=== PATIENT | female | born 1980 | race Caucasian/White ===

== ENCOUNTER 2018-06-03 21:02 | Emergency (ER) | payer OTHER ==
[2018-06-03 21:06] VITALS: BP 147/88; PULSE 90; TEMP 98; BMI 35.4
[2018-06-03] MEDS ORDERED: AMOX TR/POT CLAV 500MG/125MG TABLETS (FP) PO ONE (21:39)
--- NOTE | 2018-06-03 21:40 | PDOC ---
History of Present Illness - General History Source: Patient Exam Limitations: No Limitations - History of Present Illness Initial Comments: 06/03/18 21:41 The patient is a 37 year old female, who presents to the ED complaining of a dog bite on the left middle finger. 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 She denies any other kind of injuries. PAST MEDICAL HISTORY: no significant history PAST SURGICAL HISTORY: no significant history FAMILY HISTORY: no pertinent history SOCIAL HISTORY: Pt lives with family and is employed. MEDICATIONS: reviewed ALLERGIES: As per nursing notes General: No fevers or chills, no weakness, no weight loss Musculoskeletal: (+) Left middle finger bite. No joint or muscle pain or swelling Neurologic: No headache, vertigo, dizziness or loss of consciousness Psychiatric: nor depression Skin: No rashes or easy bruising Allergic: no skin or latex allergy All other systems reviewed and normal General: Well-nourished well-developed individual, no acute distress Extremities: (+) Left middle finger nearly circumferential laceration of the middle phalanges. Post numbing and Tourniquet, laceration was explored, no visible injury to the tendon, flexor or extensor. Sensation distal intact. Skin: No rashes. <Tc Warren - Last Filed: 06/03/18 22:28> - General History Source: Patient Exam Limitations: No Limitations - History of Present Illness Initial Comments: 06/03/18 22:23 A portion of this note was documented by scribe services under my direction. I have reviewed the details of the note, within reason, and agree with the documentation with the following case summary and management plan written by me. Patient treated in the ED. Nursing notes are reviewed and incorporated into the medical decision-making. Vital signs reviewed. Assessment and plan: This is a 37-year-old female who comes in complaining of dog bite to her left middle finger. Patient has a laceration that is nearly [place] comp pharyngeal of the middle. Laceration however superficial and there is no visible injury to the tendon sheath or tendon laceration was repaired and patient was started on antibiotics patient given first dose in the ED. Patient discharged home and told to return in 10 days for suture removal. 06/03/18 22:49 Procedure note: Total laceration length was approximately 3 cm Laceration was anesthetized via digital block using lidocaine no epi. Laceration was explored in a bloodless field no visible tendon injury. Laceration was irrigated with normal saline using a Zerowet and pressure. Laceration was closed with total of sutures of 5-0 Ethilon Bacitracin and sterile dressing was applied patient tolerated well. <Es Marlow I - Last Filed: 06/03/18 22:50> - General Chief Complaint: Bite Stated Complaint: DOG BITE Time Seen by Provider: 06/03/18 21:07 Past History <Tc Warren - Last Filed: 06/03/18 22:28> - Past Medical History COPD: No - Immunization History TDAP Vaccination: Yes (11/04/14) Immunization Up to Date: Yes - Suicide/Smoking/Psychosocial Hx Smoking History: Unknown if ever smoked Have you smoked in the past 12 months: No Number of Cigarettes Smoked Daily: 0 Information on smoking cessation initiated: No Hx Alcohol Use: No Drug/Substance Use Hx: No Substance Use Type: None <Es Marlow I - Last Filed: 06/03/18 22:50> - Past Medical History Allergies/Adverse Reactions: Allergies Allergy/AdvReac Type Severity Reaction Status Date / Time No Known Allergies Allergy Verified 11/14/14 08:58 Home Medications: Ambulatory Orders Amoxicillin/Potassium Clav [Augmentin 500-125 Tablet] 1 each PO TID #30 tablet 11/04/14 Amoxicillin/Potassium Clav [Augmentin 500-125 Tablet] 1 each PO BID #14 tablet 06/03/18 *Physical Exam - Vital Signs Last Vital Signs Temp Pulse Resp BP Pulse Ox 98 F 90 14 147/88 100 06/03/18 21:03 06/03/18 21:03 06/03/18 21:03 06/03/18 21:03 06/03/18 21:03 <Tc Warren - Last Filed: 06/03/18 22:28> - Vital Signs Last Vital Signs Temp Pulse Resp BP Pulse Ox 98 F 90 14 147/88 100 06/03/18 21:03 06/03/18 21:03 06/03/18 21:03 06/03/18 21:03 06/03/18 21:03 <Es Marlow I - Last Filed: 06/03/18 22:50> Moderate Sedation - Procedure Monitoring Vital Signs: Procedure Monitoring Vital Signs Temperature 98 F 06/03/18 21:03 Pulse Rate 90 06/03/18 21:03 Respiratory Rate 14 06/03/18 21:03 Blood Pressure 147/88 06/03/18 21:03 O2 Sat by Pulse Oximetry (%) 100 06/03/18 21:03 <Tc Warren - Last Filed: 06/03/18 22:28> - Procedure Monitoring Vital Signs: Procedure Monitoring Vital Signs Temperature 98 F 06/03/18 21:03 Pulse Rate 90 06/03/18 21:03 Respiratory Rate 14 06/03/18 21:03 Blood Pressure 147/88 06/03/18 21:03 O2 Sat by Pulse Oximetry (%) 100 06/03/18 21:03 <Es Marlow I - Last Filed: 06/03/18 22:50> *DC/Admit/Observation/Transfer - Attestations Scribe Attestion: 06/03/18 21:41 Documentation prepared by Tc Warren, acting as center medical and lab director for Es Marlow MD <Tc Warren - Last Filed: 06/03/18 22:28> - Discharge Dispostion Decision to Admit order: No <Es Marlow I - Last Filed: 06/03/18 22:50> Diagnosis at time of Disposition: Dog bite - Discharge Dispostion Disposition: HOME Condition at time of disposition: Good - Prescriptions Prescriptions: Amoxicillin/Potassium Clav [Augmentin 500-125 Tablet] 1 each PO BID #14 tablet - Patient Instructions Additional Instructions: To prevent infection take Augmentin 1 tablet twice a day for 7 days, Tylenol or Motrin as needed for pain. Return to the emergency department immediately with ANY new, persistent or worsening symptoms. Continue any medications as previously prescribed by your physician. You should follow up with your primary doctor as soon as possible regarding today's emergency department visit. . Please make sure your doctor reviews the results of your emergency evaluation. Thank you for coming to the Emergency Department today for your care. It was a pleasure to see you today. Please note that your evaluation is INCOMPLETE until you follow-up with your doctor.
[2018-06-03] MEDS ORDERED: AMOX TR/POT CLAV 500MG/125MG TABLETS (FP) ONE (21:44)
== END 2018-06-03 21:45 | disposition home or self-care (01) ==
LOC: FER 21:02
PROC: 0HQGXZZ Repair Left Hand Skin, External Approach (ICD-10-PCS; principal; 2018-06-03)
DX: S61.253A Open bite of left middle finger without damage to nail, initial encounter (principal); W54.0XXA Bitten by dog, initial encounter; Y93.89 Activity, other specified; Y92.89 Other specified places as the place of occurrence of the external cause; Y99.0 Civilian activity done for income or pay
CPT/HCPCS: 99282-25

== ENCOUNTER 2018-06-13 09:52 | Emergency (ER) | payer OTHER ==
--- NOTE | 2018-06-13 09:55 | PDOC ---
Suture Removal/Wound Check HPI - History of Present Illness Chief Complaint: Suture/Staple Removal(Here) Stated Complaint: SUTURE REMOVAL LEFT 3RD FINGER Time Seen by Provider: 06/13/18 09:53 History Source: Yes: Patient Exam Limitations: Yes: No Limitations Treated at: [facility] ED Date of Last ED visit: 06/03/18 - Previous ED Treatment Type of procedure performed on last visit: Yes: Laceration Repair Tetanus Immunization: Yes: Up to Date Antibiotics Prescribed: Yes (augmentin x7 days) - Onset of Previous Treatment Date of Occurence: 06/03/18 Past History - Travel Traveled outside of the country in the last 30 days: No Close contact w/someone who was outside of country & ill: No - Past Medical History Allergies/Adverse Reactions: Allergies Allergy/AdvReac Type Severity Reaction Status Date / Time No Known Allergies Allergy Verified 06/13/18 09:53 Home Medications: Ambulatory Orders Amoxicillin/Potassium Clav [Augmentin 500-125 Tablet] 1 each PO BID #14 tablet 06/03/18 Diabetes: No HTN: No Hypercholesterolemia: No - Immunization History TDAP Vaccination: Yes (11/04/14) Immunization Up to Date: Yes - Suicide/Smoking/Psychosocial Hx Smoking History: Never smoked Have you smoked in the past 12 months: No Number of Cigarettes Smoked Daily: 0 Hx Alcohol Use: No Drug/Substance Use Hx: No Substance Use Type: None Suture Removal/Wound Check PE - Physical Exam Laceration/Wound Check Symptoms: reports: Improved. denies: Pain, Fever, Chills , Redness, Discharge, Bleeding, Numbness, Weakness Comments: 10 sutures circumferential on L middle finger. Appears well-healing with scabs, no active drainage or erythema. 10 sutures removed with minimal bleeding. Bacitracin applied with clean dressing. 06/13/18 11:02 Current Severity Level: None Location of Laceration/Wound: left: Finger (L middle finger) Pain Radiation: None *Review of Systems - Review of Systems Able to Perform ROS?: Yes Constitutional: Yes: Weight Stable. No: Chills, Diaphoresis, Fever, Loss of Appetite HEENTM: No: Nose Congestion Respiratory: No: Cough Cardiac (ROS): No: Chest Pain, Chest Tightness ABD/GI: No: Diarrhea, Nausea, Poor Appetite, Poor Fluid Intake, Vomiting : No: Pain Musculoskeletal: Yes: Joint Pain (Minor joint pain over L middle finger 2/2 dog bite and suture area). No: Back Pain Integumentary: Yes: See HPI. No: Bruising, Rash Neurological: No: Headache, Numbness, Paresthesia, Tingling, Weakness Psychiatric: No: Change in Appetite Endocrine: No: Change in Weight Hematologic/Lymphatic: No: Anemia, Blood Clots, Easy Bleeding, Easy Bruising, Bleeding Diathesis Medical Decision Making - Medical Decision Making Pt was seen at bedside, also will be seen by attending Dr. Lopez. Pt presenting for suture removal placed 06/03/2018 (10 sutures on L middle finger). 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 The dog bit in response to her L finger. The pt stated the dogs get rabies checks prior to coming to the daycare, so no rabies work-up was done at that time. Pt was prescribed 7 days of augmentin, which she took to completion. There has been no loss of strength or sensation, no fever/chills, no nausea/vomiting/diarrhea, PO food and fluid intake has been sufficient, and there has been no active redness or drainage to the site. Pt thinks "1 suture may have ripped out by accident". PE showed well-healing scab circumferential around L middle finger ([address]). No active drainage or erythema. Heart and lungs sounds clear, pt appears comfortable. 10 sutures were removed (see procedure note). Bacitracin and clean bandage applied. Pt can be discharged with PCP follow-up. Strict return precautions provided. 06/13/18 09:55 *DC/Admit/Observation/Transfer Diagnosis at time of Disposition: Visit for suture removal, Dog bite - Discharge Dispostion Disposition: HOME Condition at time of disposition: Good Decision to Admit order: No - Referrals Referrals: Sandra Rai MD [Primary Care Provider] - - Patient Instructions Printed Discharge Instructions: DI for Suture Removal Additional Instructions: You were seen in the ER today for suture removal. Please follow-up with your primary care doctor within 1-2 days to discuss your visit and make sure your symptoms have improved. Please return to the ER if you have any worsening pain, redness to the area or drainage, development of fevers or chills, loss of consciousness, inability to tolerate food or fluids, or any other concerns. Apply bacitracin to the area twice per day and wash with warm water and soap. - Post Discharge Activity
[2018-06-13 09:58] VITALS: BP 134/77; PULSE 92; TEMP 97.9; BMI 34.7
--- NOTE | 2018-06-13 10:16 | PDOC ---
Attending Attestation - Resident Resident Name: MelaLakisha - ED Attending Attestation I have performed the following: I have examined & evaluated the patient, The case was reviewed & discussed with the resident, I agree w/resident's findings & plan, Exceptions are as noted - HPI HPI: 06/13/18 10:15 37y F presenting for suture removal sp dog bite no complaints was given abx on initial visit laceration appears to be healing well no signs of infection including erythema/induration, fluctuance/pain sutures removed return precautions were discussed - Physicial Exam PE: 06/13/18 10:16 see above - Medical Decision Making 06/13/18 10:16 see above
== END 2018-06-13 10:15 | disposition home or self-care (01) ==
LOC: FER 09:52
CPT/HCPCS: 99282-25

== ENCOUNTER 2018-10-05 12:10 | Emergency (ER) | payer OTHER ==
[2018-10-05 12:16] VITALS: BP 139/83; PULSE 98; TEMP 97.6; BMI 35.4
[2018-10-05] MEDS ORDERED: AMOX TR/POT CLAV 875MG/125MG TABLETS (FP) PO ONE (12:26)
--- NOTE | 2018-10-05 12:33 | PDOC ---
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 No numbness or weakness. This occurred today. Able to flex and extend all digits. Pt was concerned for risk of infection, so came into the ED. Past History - Past Medical History Allergies/Adverse Reactions: Allergies Allergy/AdvReac Type Severity Reaction Status Date / Time No Known Allergies Allergy Verified 10/05/18 12:11 Home Medications: Ambulatory Orders Amoxicillin/Potassium Clav [Augmentin 875-125 Tablet] 1 each PO BID #14 tablet 10/05/18 COPD: No Diabetes: No HTN: No Hypercholesterolemia: No Other medical history: DENIES - Immunization History Td Vaccination: Yes (5 YRS) TDAP Vaccination: Yes (11/04/14) Immunization Up to Date: Yes - Suicide/Smoking/Psychosocial Hx Smoking History: Never smoked Have you smoked in the past 12 months: No Number of Cigarettes Smoked Daily: 0 Information on smoking cessation initiated: No Hx Alcohol Use: No Drug/Substance Use Hx: No Substance Use Type: None Review of Systems - Review of Systems Able to Perform ROS?: Yes Comments:: 10/05/18 12:28 GENERAL/CONSTITUTIONAL: [No fever or chills. No weakness. No weight change.] HEAD, EYES, EARS, NOSE AND THROAT: [No change in vision. No ear pain or discharge. No sore throat.] CARDIOVASCULAR: [No chest pain or shortness of breath.] RESPIRATORY: [No cough, wheezing, or hemoptysis.] GASTROINTESTINAL: [No nausea, vomiting, diarrhea or constipation. No rectal bleeding.] GENITOURINARY: [No dysuria, frequency, or change in urination.] MUSCULOSKELETAL: [No joint or muscle swelling or pain. No neck or back pain.] SKIN AND BREASTS: [No rash or easy bruising.] right hand dog bite puncture wound NEUROLOGIC: [No headache, vertigo, loss of consciousness, or loss of sensation.] PSYCHIATRIC: [No depression or anxiety.] ENDOCRINE: [No increased thirst. No abnormal weight change.] HEMATOLOGIC/LYMPHATIC: [No anemia, easy bleeding, or history of blood clots.] ALLERGIC/IMMUNOLOGIC: [No hives or skin allergy. No latex allergy.] *Physical Exam - Vital Signs Last Vital Signs Temp Pulse Resp BP Pulse Ox 97.6 F 98 H 18 139/83 98 10/05/18 12:10 10/05/18 12:10 10/05/18 12:10 10/05/18 12:10 10/05/18 12:10 - Physical Exam Comments: 10/05/18 12:28 GENERAL: Awake, alert, and fully oriented, in no acute distress HEAD: No signs of trauma EYES: EOMI, sclera anicteric, conjunctiva clear ENT: Auricles normal inspection, hearing grossly normal, nares patent, Moist mucosa NECK: Normal ROM, supple EXTREMITIES: Normal range of motion, no edema. No clubbing or cyanosis. No cords, erythema, or tenderness NEUROLOGICAL: Cranial nerves II through XII grossly intact. Normal speech, normal gait SKIN: Warm, Dry, normal turgor, no rashes or lesions noted. RUE: 2+ radial pulse. Sensation and strength intact throughout median/radian/ ulnar nerve distribution. Full flexion and extension of all digits. No evidence of tendon wounds or injuries. Small 0.25 x 0.25 cm puncture wound in the webbing between 3rd and 4th digit. Medical Decision Making - Medical Decision Making 10/05/18 12:33 Vital Signs Temp Pulse Resp BP Pulse Ox 97.6 F 98 H 18 139/83 98 10/05/18 12:10 10/05/18 12:10 10/05/18 12:10 10/05/18 12:10 10/05/18 12:10 Impression: Dog puncture wound bite R hand. No evidence of tendon injury. Neurovascularly intact Given dog bite, will allow hand to heal by secondary intention. UTD on tetanus Augmentin BID x 7 days. Return precautions. Wound was irrigated under high pressure with 500 nc NS And then allowed to soak in normal saline and beta iodine solution Pt reports that these dogs are vaccinated. *DC/Admit/Observation/Transfer Diagnosis at time of Disposition: Dog bite - Discharge Dispostion Disposition: HOME Condition at time of disposition: Stable Decision to Admit order: No - Prescriptions Prescriptions: Amoxicillin/Potassium Clav [Augmentin 875-125 Tablet] 1 each PO BID #14 tablet - Referrals Referrals: Sandra Rai MD [Primary Care Provider] - - Patient Instructions Printed Discharge Instructions: DI for Animal Bites Additional Instructions: Please take the antibiotics (augmentin 875 mg) every 12 hours for 7 days. Continue to wash your hands daily. The wound will eventually heal by itself. Follow up with your doctor. If you notice any redness or pus at the wound site, please return to the ER. - Post Discharge Activity
[2018-10-05] MEDS ORDERED: AMOX TR/POT CLAV 875MG/125MG TABLETS (FP) ONE (12:43)
== END 2018-10-05 13:05 | disposition home or self-care (01) ==
LOC: FER 12:10
DX: S61.451A Open bite of right hand, initial encounter (principal); W54.0XXA Bitten by dog, initial encounter; Y93.9 Activity, unspecified; Y92.9 Unspecified place or not applicable
CPT/HCPCS: 99283-25